=== PATIENT | female | born 1995 | race Caucasian/White ===

== ENCOUNTER 2021-05-04 11:32 | Emergency (ER) | payer MEDICAID ==
[~2021-05-04] VITALS: Ht 160 cm; Wt 84.1 kg
[2021-05-04 11:46] VITALS: BP 127/89; TEMP 97.8
[2021-05-04 12:10] LABS: COLLECTION METHOD CLEAN CATCH
[2021-05-04 12:17] LABS: BASO % 0.4 % (0.0-2.0); EOS # 0.1 (0.0-0.7); EOS % 0.6 % (0-4.0); GRAN # 7.3 (1.4-6.5); GRAN % 64.2 % (42.2-75.2); HEMOGLOBIN 14.3 g/dl (12.5-16.0); LYMPH % 26.7 % (20.0-51.0); MEAN CELL VOLUME 86 fl (80.0-100.0); MEAN CORPUSCULAR HEMOGLOBIN 29 pg (27.0-31.0); MEAN CORPUSCULAR HGB CONC 34 g/dl (33.0-37.0); MEAN PLATELET VOLUME 10.7 fl (7.4-10.4); MONO # 0.9 (0.1-0.6); MONO % 7.8 % (1.7-9.3); PLATELET COUNT 299 K/mm3 (130-400); RED BLOOD COUNT 4.89 M/mm3 (4.10-5.30)
[2021-05-04 12:46] LABS: MUCOUS Present /lpf; PH 5 (5-8); URINE APPEARANCE Cloudy; URINE BACTERIA Moderate /hpf; URINE BILIRUBIN Negative (NEGATIVE); URINE BLOOD Negative (NEGATIVE); URINE COLOR Yellow; URINE GLUCOSE Negative (NEGATIVE); URINE KETONE Negative (NEGATIVE); URINE LEUKOCYTE ESTERASE 1+ (NEGATIVE); URINE NITRATE Negative (NEGATIVE); URINE PROTEIN(semi-quant) 1+ (NEGATIVE)
[2021-05-04 15:15] VITALS: PULSE 72
== END 2021-05-04 15:15 | disposition home or self-care (01) ==
LOC: COL.ER 11:32
PROVIDERS: Emergency Medicine
DX: O20.0 Threatened abortion (principal); Z3A.01 Less than 8 weeks gestation of pregnancy